=== PATIENT | male | born 1955 | race Caucasian/White ===

== ENCOUNTER → 2022-05-28 | Outpatient (REF) | payer MEDICARE ==
[2022-05-28 18:15] LABS: ALBUMIN 3.5 GM/DL (3.2-5.2); ALT/SGPT 40 U/L (12-78); BILIRUBIN,TOTAL 0.4 MG/DL (0.2-1.0); BLOOD UREA NITROGEN 17 MG/DL (7-18); CALCIUM LEVEL 8.9 MG/DL (8.8-10.2); CARBON DIOXIDE LEVEL 27 MEQ/L (21-32); CHLORIDE LEVEL 106 MEQ/L (98-107); CHOLESTEROL LEVEL 168 MG/DL (<200); CHOLESTEROL RISK RATIO 2.709 (<5); CREATININE FOR GFR 0.89 MG/DL (0.70-1.30); GLOMERULAR FILTRATION RATE > 60.0 (>49); GLUCOSE, FASTING 83 MG/DL (70-100); HDL CHOLESTEROL 62 MG/DL (>40); LDL CHOLESTEROL 90 MG/DL (<100); NON-HDL-C 106 MG/DL; POTASSIUM SERUM 4.8 MEQ/L (3.5-5.1); SODIUM LEVEL 139 MEQ/L (136-145); TOTAL PROTEIN 6.9 GM/DL (6.4-8.2); TRIGLYCERIDES LEVEL 80 MG/DL (<150)
[2022-05-28 19:22] LABS: HEPATITIS C VIRUS ABY INDEX 0.2 INDEX (<0.8)
== END ==
LOC: M LAB REF 16:29
PROVIDERS: ATTEND Family Medicine Addiction Medicine
DX: E66.3 Overweight (principal); Z68.26 Body mass index [BMI] 26.0-26.9, adult

== ENCOUNTER → 2023-10-21 | Outpatient (CLI) | payer MEDICARE ==
[2023-10-21 13:41] LABS: PSA SCREENING 0.76 NG/ML (< 4.00)
[2023-10-21 13:43] LABS: CHOLESTEROL RISK RATIO 2.53 (<5); HDL CHOLESTEROL 61.2 MG/DL (>40); LDL CHOLESTEROL 79.8 MG/DL (<100); NON-HDL-C 93.8 MG/DL
[2023-10-21 13:45] LABS: THYROID STIMULATING HORMONE 1.685 uIU/ML (0.55-4.78)
[2023-10-21 14:01] LABS: HEMOGLOBIN A1c 5.4 % (4.0-6.0)
== END ==
LOC: M RAD 11:05
PROVIDERS: ATTEND Family Medicine Addiction Medicine
DX: M25.511 Pain in right shoulder (principal); Z68.26 Body mass index [BMI] 26.0-26.9, adult; Z12.5 Encounter for screening for malignant neoplasm of prostate; E78.00 Pure hypercholesterolemia, unspecified
CPT/HCPCS: 73030; 80061; 83036; 84443; G0103

== ENCOUNTER 2023-12-16 07:15 | Outpatient (RCR) | payer MEDICARE | END 2023-12-18 | LOC: M PT 07:15 | PROVIDERS: ATTEND Family Medicine Addiction Medicine | DX: M25.511 Pain in right shoulder (principal) ==

== ENCOUNTER 2024-01-14 07:44 | Outpatient (RCR) | payer MEDICARE | END 2024-01-17 | LOC: M PT 07:44 | PROVIDERS: ATTEND Family Medicine Addiction Medicine | DX: M25.511 Pain in right shoulder (principal) ==

== ENCOUNTER 2024-01-20 08:28 | Outpatient (RCR) | payer MEDICARE | END 2024-02-17 | LOC: M PT 08:28 | PROVIDERS: ATTEND Family Medicine Addiction Medicine | DX: M25.511 Pain in right shoulder (principal) ==

== ENCOUNTER → 2024-02-08 | Outpatient (CLI) | payer MEDICARE | LOC: M WHC 13:03 | PROVIDERS: ATTEND Family Medicine Addiction Medicine | DX: M85.89 Other specified disorders of bone density and structure, multiple sites (principal) ==

== ENCOUNTER → 2025-04-13 | Outpatient (CLI) | payer MEDICARE | LOC: M WUC 09:56 | PROVIDERS: ATTEND Family Medicine Addiction Medicine | DX: M25.552 Pain in left hip (principal); G89.29 Other chronic pain ==